=== PATIENT | male | born 1975 | race African-American/Black ===

== ENCOUNTER 2020-07-29 01:20 | Emergency (ER) | payer OTHER ==
[~2020-07-29] VITALS: Ht 177.8 cm; Wt 91.0 kg
[2020-07-29 06:00] VITALS: BP 127/72
== END 2020-07-29 06:15 | disposition home or self-care (01) ==
LOC: ER 01:20
DX: L98.9 Disorder of the skin and subcutaneous tissue, unspecified (principal); F17.200 Nicotine dependence, unspecified, uncomplicated; I10 Essential (primary) hypertension; I49.9 Cardiac arrhythmia, unspecified
CPT/HCPCS: 93005; 99283

== ENCOUNTER 2020-08-04 12:43 | Emergency (ER) | payer OTHER ==
[~2020-08-04] VITALS: Ht 170.2 cm; Wt 75.0 kg
[2020-08-04 12:44] VITALS: BP 170/99
[2020-08-04] MEDS ORDERED: ACETAMINOPHEN 325MG TABLET PO ONE (13:45)
== END 2020-08-04 15:14 | disposition home or self-care (01) ==
LOC: ER 12:43
DX: E11.43 Type 2 diabetes mellitus with diabetic autonomic (poly)neuropathy (principal); I10 Essential (primary) hypertension; Z59.0 Homelessness
CPT/HCPCS: 99283

== ENCOUNTER 2020-12-18 10:21 | Emergency (ER) | payer OTHER ==
[~2020-12-18] VITALS: Ht 167.6 cm; Wt 77.0 kg
[2020-12-18] MEDS ORDERED: CHLORDIAZEPOXIDE 25MG CAPSULE PO ONE (10:30)
[2020-12-18] MEDS ORDERED: LORAZEPAM 2MG/ML CPJ IV ONE ×2 (10:30→17:45)
[2020-12-18 11:09] LABS: BASOPHILS % 0.5 % (0.0-2.0); EOSINOPHILS % 0.1 % (0.0-5.0); HEMATOCRIT. 42.2 % (42.0-52.0); HEMOGLOBIN. 13.4 g/dL (14.0-18.0); MEAN CORPUSCULAR HEMOGLOBIN 24.4 pg (28.0-32.0); MEAN CORPUSCULAR VOLUME 76.9 fL (80.0-94.0); MEAN PLATELET VOLUME 8.9 fl (7.4-10.4); MONOCYTES % 8.2 % (2.0-8.0); NEUTROPHILS % 70.2 % (40.0-76.0); PLATELET 133 x1000/uL (130-400); RED BLOOD CELL COUNT 5.49 mill/uL (4.7-6.1); RED CELL DISTRIBUTION WIDTH 18.1 % (11.6-14.6)
[2020-12-18 11:43] LABS: INR 1.2; PROTHROMBIN TIME 12.9 sec (9.6-11.0)
[2020-12-18 11:44] LABS: CHLORIDE 99 mEq/L (98-107)
[2020-12-18 12:10] LABS: ETHANOL BLOOD 397 mg/dL
[2020-12-18 18:08] VITALS: BP 120/70
== END 2020-12-18 18:10 | disposition short-term general hospital (02) ==
LOC: ER 10:21 → CANBEDREQ 13:03 → ER 18:10
DX: F10.239 Alcohol dependence with withdrawal, unspecified (principal); Y90.8 Blood alcohol level of 240 mg/100 ml or more; R55 Syncope and collapse; R94.31 Abnormal electrocardiogram [ECG] [EKG]
CPT/HCPCS: 36415; 70450; 71045; 80053; 80320; 82962; 85025; 85610; 93005; 96374; 96376; 99285; J2060; Z7610; G0480

== ENCOUNTER 2021-10-17 07:15 | Emergency (ER) | payer OTHER ==
[~2021-10-17] VITALS: Ht 165.1 cm; Wt 75.0 kg
[2021-10-17 07:20] VITALS: BP 130/90
== END 2021-10-17 18:30 | disposition left against medical advice (07) ==
LOC: ER 07:15
DX: R41.82 Altered mental status, unspecified (principal); I10 Essential (primary) hypertension
CPT/HCPCS: 99283

== ENCOUNTER 2022-01-15 10:43 | Emergency (ER) | payer OTHER ==
[~2022-01-15] VITALS: Ht 172.7 cm; Wt 80.0 kg
[2022-01-15 13:07] LABS: HEMOGLOBIN. 10.9 g/dL (14.0-18.0); MEAN CORPUSCULAR HEMOGLOBIN 24.8 pg (28.0-32.0); MEAN CORPUSCULAR VOLUME 77.5 fL (80.0-94.0); MEAN PLATELET VOLUME 8.5 fl (7.4-10.4); PLATELET 123 x1000/uL (130-400); RED BLOOD CELL COUNT 4.39 mill/uL (4.7-6.1); RED CELL DISTRIBUTION WIDTH 19.6 % (11.6-14.6)
[2022-01-15 13:16] LABS: CHLORIDE 101 mEq/L (98-107); CHLORIDE 103 mEq/L (98-107)
[2022-01-15 13:25] LABS: CREATINE KINASE 216 IU/L (39-308)
[2022-01-15 13:58] LABS: NUCLEATED RED BLOOD CELLS 4 /100 WBC; PLATELET ESTIMATE SLIGHTLY DECREASED
[2022-01-15 16:09] LABS: CLARITY URINE CLOUDY (CLEAR); COLOR URINE ORANGE (YELLOW); KETONES URINE 1+ (NEGATIVE); LEUKOCYTE ESTERASE URINE 2+ (NEGATIVE); NITRITE URINE POSITIVE (NEGATIVE); OCCULT BLOOD URINE NEGATIVE (NEGATIVE); PROTEIN URINE 2+ (NEGATIVE)
[2022-01-15] MEDS ORDERED: LORAZEPAM 1MG TABLET PO ONE (18:00)
[2022-01-15 20:27] VITALS: BP 113/68
== END 2022-01-15 20:34 | disposition home or self-care (01) ==
LOC: ER 11:02
DX: F10.129 Alcohol abuse with intoxication, unspecified (principal); D72.819 Decreased white blood cell count, unspecified; R74.01 Elevation of levels of liver transaminase levels; I10 Essential (primary) hypertension; Z98.890 Other specified postprocedural states; Y90.9 Presence of alcohol in blood, level not specified
CPT/HCPCS: 36415; 71045; 80053; 81003; 82550; 83880; 84484; 85025; 87077; 87186; 93005; 99285

== ENCOUNTER 2022-01-19 19:03 | Inpatient (IN) | payer OTHER ==
[~2022-01-19] VITALS: Ht 168.9 cm; Wt 78.2 kg
[2022-01-19] MEDS ORDERED: SODIUM CHLORIDE 0.9% 1,000 ML IV ONE ×2 (19:45→21:45)
[2022-01-19] MEDS ORDERED: LORAZEPAM 2MG/ML CPJ IV ONE ×2 (19:45→21:45)
[2022-01-19 20:18] LABS: BASOPHILS % 0.5 % (0.0-2.0); EOSINOPHILS % 0.1 % (0.0-5.0); MEAN CORPUSCULAR HEMOGLOBIN 25.5 pg (28.0-32.0); MEAN PLATELET VOLUME 9.3 fl (7.4-10.4); MONOCYTES % 8.2 % (2.0-8.0); NEUTROPHILS % 83.2 % (40.0-76.0); PLATELET 90 x1000/uL (130-400); RED BLOOD CELL COUNT 2.57 mill/uL (4.7-6.1); RED CELL DISTRIBUTION WIDTH 19.2 % (11.6-14.6)
[2022-01-19 20:20] LABS: CHLORIDE 104 mEq/L (98-107)
[2022-01-19 20:24] LABS: ETHANOL BLOOD 104 mg/dL
[2022-01-19 20:32] LABS: HEMOGLOBIN. 6.6 g/dL (14.0-18.0)
[2022-01-19 20:33] LABS: HEMATOCRIT. 20.8 % (42.0-52.0)
[2022-01-19] MEDS ORDERED: PANTOPRAZOLE SODIUM 40 MG/VIAL IV STA (21:04)
[2022-01-19] MEDS ORDERED: PANTOPRAZOLE 80 MG in SODIUM CHLORIDE 0.9% 100 ML IV STA (21:04)
[2022-01-19 21:45] LABS: INR 1.3; PROTHROMBIN TIME 13.8 sec (9.6-11.0)
[2022-01-20] MEDS ORDERED: ONDANSETRON HCL 4MG/2ML INJ IV PRN
[2022-01-20] MEDS: DEXT 5%/0.45% NACL 1000ML 1,000 ML IV SCH ×4 (00:47→23:14)
[2022-01-20] MEDS ORDERED: MORPHINE SULFATE 2 MG/ML CPJ (NOT FOR IM USE) IV PRN ×2 (01:45→10:45)
[2022-01-20] MEDS ORDERED: NALOXONE HCL 0.4 MG/ML 1ML VIAL IV PRN (01:45)
[2022-01-20] MEDS: ACETAMINOPHEN 325MG TABLET PO PRN (02:12)
[2022-01-20] MEDS: LORAZEPAM 2MG/ML CPJ IV PRN ×2 (02:37→08:01)
[2022-01-20] MEDS ORDERED: CEFTRIAXONE 1,000 MG in DEXTROSE 5% WATER 50 ML IV SCH (03:00)
[2022-01-20 03:27] LABS: BASOPHILS % 0.5 % (0.0-2.0); HEMATOCRIT. 24.4 % (42.0-52.0); HEMOGLOBIN. 8.3 g/dL (14.0-18.0); LYMPHOCYTES % 10.2 % (20.0-50.0); MEAN CORPUSCULAR VOLUME 82.6 fL (80.0-94.0); MEAN PLATELET VOLUME 10.5 fl (7.4-10.4); MONOCYTES % 6.7 % (2.0-8.0); NEUTROPHILS % 82.6 % (40.0-76.0); PLATELET 97 x1000/uL (130-400); RED BLOOD CELL COUNT 2.96 mill/uL (4.7-6.1); RED CELL DISTRIBUTION WIDTH 18.6 % (11.6-14.6)
[2022-01-20 04:06] LABS: CLARITY URINE CLEAR (CLEAR); COLOR URINE DARK YELLOW (YELLOW); KETONES URINE 1+ (NEGATIVE); LEUKOCYTE ESTERASE URINE TRACE (NEGATIVE); NITRITE URINE NEGATIVE (NEGATIVE); OCCULT BLOOD URINE TRACE (NEGATIVE); PH URINE 5.5 (4.5-8.0); PROTEIN URINE TRACE (NEGATIVE); SPECIFIC GRAVITY URINE 1.023 (1.005-1.030)
[2022-01-20 04:15] LABS: *AMPHETAMINES SCREEN URINE NEGATIVE (NEGATIVE); *BARBITURATES SCREEN URINE NEGATIVE (NEGATIVE); *BENZODIAZEPINES SCREEN URINE NEGATIVE (NEGATIVE); *COCAINE SCREEN URINE NEGATIVE (NEGATIVE); METHADONE URINE SCREEN NEGATIVE (NEGATIVE); OPIATES URINE SCREEN NEGATIVE (NEGATIVE); PHENCYCLIDINE URINE SCREEN NEGATIVE (NEGATIVE)
[2022-01-20 04:16] LABS: CANNABINOID URINE SCREEN NEGATIVE (NEGATIVE)
[2022-01-20] MEDS ORDERED: ACETAMINOPHEN 650MG SUPP PR PRN (10:45)
[2022-01-20] MEDS ORDERED: LORAZEPAM 2MG/ML CPJ IV PRN (10:45)
[2022-01-20] MEDS ORDERED: IPRATROPIUM/ALBUTEROL 0.5-3(2.5)MG/3ML NEB NEB PRN (10:45)
[2022-01-20] MEDS: PIPERACILLIN/TAZOBACTAM 3.375 G in DEXTROSE 5% WATER 50 ML IV SCH ×2 (12:00→23:14)
[2022-01-20 12:25] LABS: BG BASE EXCESS -3.1 mmol/L (-2.0-2.0); BG CARBOXYHEMOGLOBIN 0.1 % (0.5-1.5); BG DEOXYHEMOGLOBIN 3.3 % (0.0-5.0); BG FRACTION INSPIRED OXYGEN 21; BG HCO3 ACT 19.7 mmol/L (22.0-26.0); BG METHEMOGLOBIN 0.4 % (0.0-1.5); BG OXYGEN SATURATION 96.7 % (92.0-98.5); BG OXYHEMOGLOBIN 96.2 % (94.0-97.0); BG PCO2 27.1 mmHg (35.0-45.0); BG PO2 94.2 mmHg (75.0-100.0); BG SAMPLE SITE RIGHT RADIAL; BG TOTAL HEMOGLOBIN 8.6 g/dL (12.0-18.0); BG VENT MODE ROOM AIR
[2022-01-20] MEDS ORDERED: LORAZEPAM 2MG/ML CPJ IV NR (12:45)
[2022-01-20 12:49] LABS: CHLORIDE 111 mEq/L (98-107)
[2022-01-20 12:58] LABS: HEMATOCRIT. 23.9 % (42.0-52.0); HEMOGLOBIN. 8.2 g/dL (14.0-18.0); MEAN CORPUSCULAR HEMOGLOBIN 28.1 pg (28.0-32.0); MEAN PLATELET VOLUME 9.6 fl (7.4-10.4); PLATELET 72 x1000/uL (130-400); RED BLOOD CELL COUNT 2.91 mill/uL (4.7-6.1); RED CELL DISTRIBUTION WIDTH 18.4 % (11.6-14.6)
[2022-01-20] MEDS ORDERED: MVI, ADULT NO.1 10 ML, FOLIC ACID 1 MG, THIAMINE HCL 100 MG in SODIUM CHLORIDE 0.9% 1,0... IV NR ×4 (13:00)
[2022-01-20 13:19] LABS: NUCLEATED RED BLOOD CELLS 9 /100 WBC
[2022-01-20 13:20] LABS: PLATELET ESTIMATE DECREASED
[2022-01-20] MEDS ORDERED: POTASSIUM CHLORIDE INJ 40 MEQ in DEXT 5% WATER 250 ML IV ONE (14:15)
[2022-01-20 15:03] LABS: HEPATITIS B SURFACE ANTIGEN NEGATIVE
[2022-01-20] MEDS: KCL 20MEQ/100ML X 2 FOR TOTAL KCL 40MEQ/200ML IV SCH ×2 (15:42→17:00)
[2022-01-20 17:57] LABS: HEMATOCRIT 23.8 % (42.0-52.0)
[2022-01-20 18:12] LABS: CREATINE KINASE 211 IU/L (39-308)
[2022-01-20 18:13] LABS: CREATINE KINASE MB FRACTION 2.4 ng/mL (0.5-3.6)
[2022-01-20 18:23] LABS: FOLIC ACID (FOLATE) SERUM >20 ng/mL ng/mL (>5.38)
[2022-01-20 18:35] LABS: VITAMIN B12 SERUM 443 pg/mL (211-911)
[2022-01-20 19:25] LABS: TOTAL IRON BINDING CAPACITY 243 ug/dL (250-450)
[2022-01-20 19:30] LABS: FERRITIN 705 ng/mL (22-322)
[2022-01-20 20:29] VITALS: BP 129/94
[2022-01-20 22:00] VITALS: BP 142/89
[2022-01-20] MEDS: PANTOPRAZOLE SODIUM 40 MG/VIAL IV SCH (23:14)
[2022-01-21] VITALS (12 sets, daily range): BP systolic 115–146; BP diastolic 72–102
[2022-01-21 01:58] LABS: HEMATOCRIT 26.1 % (42.0-52.0); HEMOGLOBIN 8.7 g/dL (14.0-18.0)
[2022-01-21] MEDS: LORAZEPAM 2MG/ML CPJ IV PRN ×2 (02:53→23:34)
[2022-01-21] MEDS: PIPERACILLIN/TAZOBACTAM 3.375G in DEXT 5% WATER 50ML IV SCH ×3 (05:31→20:56)
[2022-01-21] MEDS ORDERED: PIPERACILLIN/TAZOBACTAM 3.375 G in DEXTROSE 5% WATER 50 ML IV SCH (06:00)
[2022-01-21] MEDS: DEXT 5%/0.45% NACL 1000ML 1,000 ML IV SCH ×3 (09:12→23:33)
[2022-01-21] MEDS: PANTOPRAZOLE SODIUM 40 MG/VIAL IV SCH ×2 (09:12→20:56)
[2022-01-21] MEDS ORDERED: SODIUM CHLORIDE 0.9% 500 ML IV ONE (14:00)
[2022-01-21 15:39] LABS: INR 1.3
[2022-01-21 15:41] LABS: BASOPHILS % 0.5 % (0.0-2.0); EOSINOPHILS % 1.9 % (0.0-5.0); HEMATOCRIT. 25.8 % (42.0-52.0); HEMOGLOBIN. 8.7 g/dL (14.0-18.0); LYMPHOCYTES % 12.1 % (20.0-50.0); MEAN CORPUSCULAR HEMOGLOBIN 27.7 pg (28.0-32.0); MEAN PLATELET VOLUME 9.6 fl (7.4-10.4); MONOCYTES % 5.9 % (2.0-8.0); NEUTROPHILS % 79.6 % (40.0-76.0); PLATELET 90 x1000/uL (130-400); RED BLOOD CELL COUNT 3.15 mill/uL (4.7-6.1); RED CELL DISTRIBUTION WIDTH 18.1 % (11.6-14.6)
[2022-01-21 15:52] LABS: CHLORIDE 106 mEq/L (98-107)
[2022-01-21] MEDS ORDERED: POTASSIUM CHLORIDE 20MEQ TABLET SR PO SCH (16:15)
[2022-01-21] MEDS: FOLIC ACID 1MG TABLET PO SCH (16:20)
[2022-01-21] MEDS: THIAMINE HCL 100MG TABLET PO SCH (16:21)
[2022-01-21] MEDS: MULTIVITAMINS,THER W-MINERALS TABLET PO SCH (16:21)
[2022-01-21 21:12] LABS: HEMATOCRIT 25.8 % (42.0-52.0); HEMOGLOBIN 8.7 g/dL (14.0-18.0)
[2022-01-22] VITALS (12 sets, daily range): BP systolic 130–161; BP diastolic 75–111
[2022-01-22 01:12] LABS: HEMATOCRIT 27.9 % (42.0-52.0); HEMOGLOBIN 9.1 g/dL (14.0-18.0)
[2022-01-22] MEDS: PIPERACILLIN/TAZOBACTAM 3.375G in DEXT 5% WATER 50ML IV SCH ×3 (06:09→21:43)
[2022-01-22 06:20] LABS: CHLORIDE 108 mEq/L (98-107)
[2022-01-22 06:21] LABS: INR 1.3
[2022-01-22 06:41] LABS: BASOPHILS % 0.4 % (0.0-2.0); EOSINOPHILS % 2.4 % (0.0-5.0); HEMATOCRIT. 26.9 % (42.0-52.0); LYMPHOCYTES % 13.4 % (20.0-50.0); MEAN CORPUSCULAR HEMOGLOBIN 27.6 pg (28.0-32.0); MEAN CORPUSCULAR VOLUME 82.7 fL (80.0-94.0); MEAN PLATELET VOLUME 9.9 fl (7.4-10.4); MONOCYTES % 8.6 % (2.0-8.0); NEUTROPHILS % 75.2 % (40.0-76.0); PLATELET 107 x1000/uL (130-400); RED BLOOD CELL COUNT 3.25 mill/uL (4.7-6.1); RED CELL DISTRIBUTION WIDTH 18.1 % (11.6-14.6)
[2022-01-22] MEDS ORDERED: POTASSIUM CHLORIDE INJ 40 MEQ in DEXT 5% WATER 500 ML IV ONE (08:15)
[2022-01-22] MEDS: MULTIVITAMINS,THER W-MINERALS TABLET PO SCH (09:29)
[2022-01-22] MEDS: FOLIC ACID 1MG TABLET PO SCH (09:29)
[2022-01-22] MEDS: THIAMINE HCL 100MG TABLET PO SCH (09:30)
[2022-01-22] MEDS: PANTOPRAZOLE SODIUM 40 MG/VIAL IV SCH ×2 (09:30→21:43)
[2022-01-22] MEDS: KCL 20MEQ/100ML X 2 FOR TOTAL KCL 40MEQ/200ML IV SCH ×2 (11:26→12:46)
[2022-01-22] MEDS: DEXT 5%/0.45% NACL 1000ML 1,000 ML IV SCH ×2 (11:28→18:02)
[2022-01-22 13:21] LABS: HEMATOCRIT 27.4 % (42.0-52.0); HEMOGLOBIN 9.3 g/dL (14.0-18.0)
[2022-01-22] MEDS ORDERED: KCL 10MEQ/50ML PREMIX 50 ML IV NR (13:30)
[2022-01-22] MEDS ORDERED: POTASSIUM CHLORIDE 20MEQ TABLET SR PO NR (14:07)
[2022-01-22] MEDS ORDERED: MAGNESIUM 4 G PREMIX 100 ML IV NR (17:00)
[2022-01-22] MEDS: POTASSIUM CHLORIDE 20MEQ/PACKET PO NR ×2 (18:02→18:11)
[2022-01-22 20:40] LABS: HEMATOCRIT 28.2 % (42.0-52.0); HEMOGLOBIN 9.3 g/dL (14.0-18.0)
[2022-01-22] MEDS: LORAZEPAM 2MG/ML CPJ IV PRN (21:49)
[2022-01-23] VITALS (8 sets, daily range): BP systolic 126–176; BP diastolic 84–105
[2022-01-23] MEDS: ACETAMINOPHEN 325MG TABLET PO PRN (00:14)
[2022-01-23] MEDS: DEXT 5%/0.45% NACL 1000ML 1,000 ML IV SCH ×3 (00:15→18:50)
[2022-01-23 01:27] LABS: HEMATOCRIT 29.7 % (42.0-52.0); HEMOGLOBIN 9.7 g/dL (14.0-18.0)
[2022-01-23] MEDS ORDERED: HALOPERIDOL LACTATE 5MG/ML VIAL IM PRN (04:45)
[2022-01-23] MEDS: PIPERACILLIN/TAZOBACTAM 3.375G in DEXT 5% WATER 50ML IV SCH ×3 (06:15→21:27)
[2022-01-23 06:35] LABS: CHLORIDE 108 mEq/L (98-107)
[2022-01-23 06:36] LABS: BASOPHILS % 0.3 % (0.0-2.0); EOSINOPHILS % 2.6 % (0.0-5.0); HEMATOCRIT. 29.4 % (42.0-52.0); HEMOGLOBIN. 9.8 g/dL (14.0-18.0); LYMPHOCYTES % 12.5 % (20.0-50.0); MEAN CORPUSCULAR HEMOGLOBIN 27.5 pg (28.0-32.0); MEAN CORPUSCULAR VOLUME 82.9 fL (80.0-94.0); MEAN PLATELET VOLUME 9.5 fl (7.4-10.4); MONOCYTES % 11.8 % (2.0-8.0); NEUTROPHILS % 72.8 % (40.0-76.0); PLATELET 135 x1000/uL (130-400); RED BLOOD CELL COUNT 3.55 mill/uL (4.7-6.1); RED CELL DISTRIBUTION WIDTH 18.5 % (11.6-14.6)
[2022-01-23 06:39] LABS: INR 1.2; PROTHROMBIN TIME 13.1 sec (9.6-11.0)
[2022-01-23] MEDS: THIAMINE HCL 100MG TABLET PO SCH (08:55)
[2022-01-23] MEDS: FOLIC ACID 1MG TABLET PO SCH (08:55)
[2022-01-23] MEDS: PANTOPRAZOLE SODIUM 40 MG/VIAL IV SCH ×2 (08:55→21:27)
[2022-01-23] MEDS: MULTIVITAMINS,THER W-MINERALS TABLET PO SCH (08:55)
[2022-01-23] MEDS ORDERED: POTASSIUM CHLORIDE 20MEQ TABLET SR PO SCH (10:45)
[2022-01-23 12:37] LABS: HEMOGLOBIN 9.1 g/dL (14.0-18.0)
[2022-01-23] MEDS: DILTIAZEM HCL 30MG TABLET PO SCH ×2 (15:04→21:27)
[2022-01-23] MEDS ORDERED: POTASSIUM CHLORIDE 20MEQ TABLET SR PO NR (16:00)
[2022-01-24] VITALS: BP 140/99
[2022-01-24 04:00] VITALS: BP 128/78
[2022-01-24] MEDS: PIPERACILLIN/TAZOBACTAM 3.375G in DEXT 5% WATER 50ML IV SCH ×2 (06:02→13:11)
[2022-01-24] MEDS: DILTIAZEM HCL 30MG TABLET PO SCH ×2 (06:02→13:11)
[2022-01-24 06:53] LABS: HEMATOCRIT. 27.2 % (42.0-52.0); HEMOGLOBIN. 8.9 g/dL (14.0-18.0); MEAN CORPUSCULAR HEMOGLOBIN 27.5 pg (28.0-32.0); MEAN CORPUSCULAR VOLUME 84.3 fL (80.0-94.0); PLATELET 155 x1000/uL (130-400); RED BLOOD CELL COUNT 3.23 mill/uL (4.7-6.1); RED CELL DISTRIBUTION WIDTH 19.2 % (11.6-14.6)
[2022-01-24 07:02] LABS: CHLORIDE 112 mEq/L (98-107)
[2022-01-24 08:00] VITALS: BP 140/99
[2022-01-24] MEDS: THIAMINE HCL 100MG TABLET PO SCH (08:52)
[2022-01-24] MEDS: PANTOPRAZOLE SODIUM 40 MG/VIAL IV SCH (08:52)
[2022-01-24] MEDS: FOLIC ACID 1MG TABLET PO SCH (08:52)
[2022-01-24] MEDS: MULTIVITAMINS,THER W-MINERALS TABLET PO SCH (08:52)
[2022-01-24] MEDS ORDERED: POTASSIUM CHLORIDE 20MEQ TABLET SR PO NR (10:30)
[2022-01-24] MEDS: DEXT 5%/0.45% NACL 1000ML 1,000 ML IV SCH ×3 (11:04→16:00)
[2022-01-24 12:00] VITALS: BP 129/75
[2022-01-24 14:17] VITALS: BP 129/75
[2022-01-24] MEDS ORDERED: POTASSIUM CHLORIDE 10MEQ TABLET SR PO NR (15:00)
[2022-01-24 15:33] VITALS: BP 110/79
[2022-01-24 19:38] LABS: PLATELET ESTIMATE NORMAL
== END 2022-01-24 17:15 | DRG 253 ==
LOC: ER 19:03 → MICUSO 21:43 → 5EST 01-20 22:44
PROVIDERS: ADMIT Internal Medicine; ATTEND Internal Medicine
PROC: 30233N1 Transfusion of Nonautologous Red Blood Cells into Peripheral Vein, Percutaneous Approach (ICD-10-PCS; principal; 2022-01-19)
DX: K92.2 Gastrointestinal hemorrhage, unspecified (principal); F10.231 Alcohol dependence with withdrawal delirium; E72.20 Disorder of urea cycle metabolism, unspecified; K76.0 Fatty (change of) liver, not elsewhere classified; E83.51 Hypocalcemia; R16.0 Hepatomegaly, not elsewhere classified; E83.42 Hypomagnesemia; D50.0 Iron deficiency anemia secondary to blood loss (chronic); E86.0 Dehydration; E87.6 Hypokalemia; I10 Essential (primary) hypertension; K80.20 Calculus of gallbladder without cholecystitis without obstruction; R73.9 Hyperglycemia, unspecified; K44.9 Diaphragmatic hernia without obstruction or gangrene; Z20.822 Contact with and (suspected) exposure to COVID-19; Z83.3 Family history of diabetes mellitus; N39.0 Urinary tract infection, site not specified; Z71.51 Drug abuse counseling and surveillance of drug abuser; D64.9 Anemia, unspecified; R19.7 Diarrhea, unspecified
CPT/HCPCS: 36415; 36600; 71045; 74176; 76700; 80048; 80053; 80076; 80305; 80320; 81003; 82140; 82248; 82375; 82550; 82553; 82607; 82728; 82746; 82805; 83540; 83550; 83735; 84132; 84443; 84484; 85014; 85018; 85025; 85044; 86705; 86709; 86803; 86850; 86900; 86920; 87340; 87426; 93005; 93306; 93970; 97162; 97166; 99291; C9113; J0696; J1630; J2060; J2270; J2543; J3411; J3475; J3480; J3490; J7030; J7050; J7060; P9016; G0480

== ENCOUNTER 2022-03-11 09:58 | Emergency (ER) | payer OTHER ==
[~2022-03-11] VITALS: Ht 170.2 cm; Wt 75.0 kg
[2022-03-11 14:21] VITALS: BP 102/68
== END 2022-03-11 14:32 | disposition home or self-care (01) ==
LOC: ER 09:58
DX: M79.672 Pain in left foot (principal); M79.671 Pain in right foot; I10 Essential (primary) hypertension; Z59.00 Homelessness unspecified
CPT/HCPCS: 99281

== ENCOUNTER 2022-10-10 06:36 | Emergency (ER) | payer OTHER ==
[~2022-10-10] VITALS: Ht 182.9 cm; Wt 86.0 kg
[2022-10-10 10:04] LABS: BASOPHILS % 1.2 % (0.0-2.0); EOSINOPHILS % 2.6 % (0.0-5.0); HEMATOCRIT. 30.9 % (42.0-52.0); HEMOGLOBIN. 9.7 g/dL (14.0-18.0); LYMPHOCYTES % 11.8 % (20.0-50.0); MEAN CORPUSCULAR HEMOGLOBIN 25.8 pg (28.0-32.0); MEAN CORPUSCULAR VOLUME 82.6 fL (80.0-94.0); MEAN PLATELET VOLUME 9.8 fl (7.4-10.4); MONOCYTES % 7.9 % (2.0-8.0); NEUTROPHILS % 76.5 % (40.0-76.0); PLATELET 460 x1000/uL (130-400); RED BLOOD CELL COUNT 3.74 mill/uL (4.7-6.1); RED CELL DISTRIBUTION WIDTH 18.2 % (11.6-14.6)
[2022-10-10 10:09] LABS: CHLORIDE 102 mEq/L (98-107)
[2022-10-10 10:31] LABS: BG BASE EXCESS -2.7 mmol/L (-2.0-2.0); BG CARBOXYHEMOGLOBIN 0.6 % (0.5-1.5); BG DEOXYHEMOGLOBIN 0.5 % (0.0-5.0); BG FRACTION INSPIRED OXYGEN 34; BG METHEMOGLOBIN 0.5 % (0.0-1.5); BG OXYGEN SATURATION 99.5 % (92.0-98.5); BG OXYHEMOGLOBIN 98.4 % (94.0-97.0); BG PCO2 27.8 mmHg (35.0-45.0); BG PH 7.475 (7.350-7.450); BG PO2 166.5 mmHg (75.0-100.0); BG SAMPLE SITE RIGHT RADIAL; BG TOTAL HEMOGLOBIN 9.7 g/dL (12.0-18.0); BG VENT MODE NASAL CANNULA
[2022-10-10] MEDS ORDERED: POTASSIUM CHLORIDE 20MEQ TABLET SR PO SCH (14:00)
[2022-10-10] MEDS ORDERED: POTASSIUM CHLORIDE 20MEQ/PACKET PO NR (16:00)
[2022-10-10 18:04] VITALS: BP 106/57
== END 2022-10-10 19:24 | disposition short-term general hospital (02) ==
LOC: ER 06:36 → UNDOADMIN 12:57 → MICUSO 12:57 → EDBEDREQ 13:06 → EDBEDREQTM 13:06 → UNDODISIN 18:44 → MICUSO 19:24
DX: R06.00 Dyspnea, unspecified (principal); I10 Essential (primary) hypertension; Z20.822 Contact with and (suspected) exposure to COVID-19; M79.604 Pain in right leg; M79.605 Pain in left leg; R29.6 Repeated falls; Z59.01 Sheltered homelessness; Z83.3 Family history of diabetes mellitus; Z86.718 Personal history of other venous thrombosis and embolism; Z88.8 Allergy status to other drugs, medicaments and biological substances
CPT/HCPCS: 36415; 36600; 71045; 80053; 82375; 82805; 83880; 84484; 85025; 87426; 87804; 93005; 93970; 99285; C9803

== ENCOUNTER 2022-10-28 09:08 | Emergency (ER) | payer OTHER ==
[~2022-10-28] VITALS: Ht 167.6 cm; Wt 68.0 kg
[2022-10-28 09:20] VITALS: BP 144/90
[2022-10-29] MEDS ORDERED: ACET-2708 MT (00:01)
== END 2022-10-28 11:28 | disposition home or self-care (01) ==
LOC: ER 09:08
DX: J06.9 Acute upper respiratory infection, unspecified (principal); I10 Essential (primary) hypertension; Z20.822 Contact with and (suspected) exposure to COVID-19; Z86.718 Personal history of other venous thrombosis and embolism
CPT/HCPCS: 71045; 87426; 99284; C9803

== ENCOUNTER 2022-10-28 21:29 | Emergency (ER) | payer MEDICAID, OTHER ==
[~2022-10-28] VITALS: Ht 167.6 cm; Wt 73.0 kg
[2022-10-28 21:46] VITALS: BP 119/80
[2022-10-28 23:40] LABS: BASOPHILS % 1.1 % (0.0-2.0); EOSINOPHILS % 2.2 % (0.0-5.0); HEMATOCRIT. 37.5 % (42.0-52.0); HEMOGLOBIN. 11.8 g/dL (14.0-18.0); MEAN CORPUSCULAR HEMOGLOBIN 25.4 pg (28.0-32.0); MEAN CORPUSCULAR VOLUME 80.4 fL (80.0-94.0); MEAN PLATELET VOLUME 9.2 fl (7.4-10.4); MONOCYTES % 13.8 % (2.0-8.0); NEUTROPHILS % 63.9 % (40.0-76.0); PLATELET 139 x1000/uL (130-400); RED BLOOD CELL COUNT 4.66 mill/uL (4.7-6.1); RED CELL DISTRIBUTION WIDTH 17.3 % (11.6-14.6)
[2022-10-28 23:46] LABS: CHLORIDE 101 mEq/L (98-107)
[2022-10-29] MEDS ORDERED: ACETAMINOPHEN 500MG TABLET PO ONE
[2022-10-29] MEDS ORDERED: IBUPROFEN 600MG TABLET PO ONE
[2022-10-29] MEDS ORDERED: ACET-2708 MT (00:01)
== END 2022-10-29 00:25 | disposition home or self-care (01) ==
LOC: ER 21:29
DX: M79.604 Pain in right leg (principal); M79.605 Pain in left leg; I10 Essential (primary) hypertension; G89.29 Other chronic pain; Z59.00 Homelessness unspecified
CPT/HCPCS: 36415; 80053; 85025; 99283; Z7610

== ENCOUNTER 2023-04-06 08:51 | Inpatient (IN) | payer OTHER ==
[~2023-04-06] VITALS: Ht 172.7 cm; Wt 73.0 kg
[~2023-04-06 08:51] MED LIST: ACET-2708 MT
[2023-04-06 09:09] VITALS: O2SAT 100
[2023-04-06 09:44] LABS: HEMOGLOBIN. 9.7 g/dL (14.0-18.0); MEAN CORPUSCULAR HEMOGLOBIN 25.5 pg (28.0-32.0); MEAN CORPUSCULAR VOLUME 75.9 fL (80.0-94.0); MEAN PLATELET VOLUME 10.4 fl (7.4-10.4); PLATELET 130 x1000/uL (130-400); RED BLOOD CELL COUNT 3.81 mill/uL (4.7-6.1); RED CELL DISTRIBUTION WIDTH 15.8 % (11.6-14.6)
[2023-04-06 09:52] LABS: CHLORIDE 84 mEq/L (98-107)
[2023-04-06 10:06] LABS: INR 1.7; PROTHROMBIN TIME 17.3 sec (9.6-11.0)
[2023-04-06 10:19] LABS: NUCLEATED RED BLOOD CELLS 4 /100 WBC
[2023-04-06 10:28] LABS: PLATELET ESTIMATE NORMAL
[2023-04-06] MEDS ORDERED: PIPERACILLIN/TAZ 3.375G PREMIX 50 ML IV ONE (10:30)
[2023-04-06] MEDS ORDERED: SODIUM CHLORIDE 0.9% 1000ML BAG (SEPSIS BOLUS) IV ONE (10:30)
[2023-04-06] MEDS ORDERED: VANCOMYCIN 1G PREMIX 200 ML IV ONE (10:30)
[2023-04-06 12:56] LABS: CLARITY URINE CLOUDY (CLEAR); COLOR URINE DARK YELLOW (YELLOW); KETONES URINE 2+ (NEGATIVE); LEUKOCYTE ESTERASE URINE 3+ (NEGATIVE); NITRITE URINE NEGATIVE (NEGATIVE); OCCULT BLOOD URINE NEGATIVE (NEGATIVE); PROTEIN URINE NEGATIVE (NEGATIVE)
[2023-04-06] MEDS ORDERED: POTASSIUM CHLORIDE 20MEQ TABLET SR PO ONE (14:00)
[2023-04-06] MEDS ORDERED: GUAIFENESIN 200MG/10ML SUGAR FREE UDC PO PRN (21:45)
[2023-04-06] MEDS ORDERED: ONDANSETRON HCL 4MG/2ML INJ IV PRN (21:45)
[2023-04-06] MEDS ORDERED: IPRATROPIUM/ALBUTEROL 0.5-3(2.5)MG/3ML NEB HHN PRN (21:45)
[2023-04-06] MEDS ORDERED: CLONIDINE 0.1MG TABLET PO PRN (21:45)
[2023-04-06] MEDS ORDERED: MAGNESIUM/ALUMINUM HYDROXIDE/SIMETHICONE 30ML UDC PO PRN (21:45)
[2023-04-06] MEDS ORDERED: DOCUSATE SODIUM 100MG CAPSULE PO PRN (21:45)
[2023-04-06] MEDS ORDERED: SODIUM CHLORIDE 0.9% 1,000 ML IV SCH (21:45)
[2023-04-06] MEDS ORDERED: ACETAMINOPHEN 325MG TABLET PO PRN ×2 (21:45)
[2023-04-06] MEDS ORDERED: KETOROLAC 15MG/ML VIAL IV PRN (22:00)
[2023-04-06 22:11] VITALS: BP 126/83; PULSE 85; RESP 15; TEMP 98.7
[2023-04-06] MEDS ORDERED: ENOXAPARIN 40MG/0.4ML SYR SUBCUT SCH (23:00)
[2023-04-06 23:16] LABS: FOLIC ACID (FOLATE) SERUM 2.4 ng/mL (>5.38)
[2023-04-07] MEDS ORDERED: CEFTRIAXONE 1,000 MG in DEXTROSE 5% WATER 50 ML IV SCH ×2 (08:00→09:00)
[2023-04-07] MEDS ORDERED: PANTOPRAZOLE SODIUM 40 MG/VIAL IV SCH (09:00)
== END 2023-04-06 22:13 | disposition short-term general hospital (02) | DRG 720 ==
LOC: ER 08:51 → MICUSO 20:47 → EDBEDREQTM 21:07 → EDBEDREQ 21:07 → ER 22:31
PROVIDERS: ADMIT Internal Medicine; ATTEND Internal Medicine
DX: A41.9 Sepsis, unspecified organism (principal); E87.1 Hypo-osmolality and hyponatremia; E87.6 Hypokalemia; I10 Essential (primary) hypertension; N39.0 Urinary tract infection, site not specified; R74.01 Elevation of levels of liver transaminase levels; Z20.822 Contact with and (suspected) exposure to COVID-19; D50.9 Iron deficiency anemia, unspecified; Z79.1 Long term (current) use of non-steroidal anti-inflammatories (NSAID); Z79.899 Other long term (current) drug therapy; Z88.8 Allergy status to other drugs, medicaments and biological substances; Z59.00 Homelessness unspecified
CPT/HCPCS: 36415; 71045; 80053; 81003; 82248; 82607; 82728; 82746; 83540; 83550; 83605; 84145; 84484; 85025; 87077; 87186; 87426; 93005; 99291; C9803; J0696; J2543; J3370; J7030; J7060